=== PATIENT | female | born 1960 | race Caucasian/White ===

== ENCOUNTER → 2023-08-18 12:30 | Outpatient (CLI) | payer MEDICARE, MEDICAID, SELFPAY ==
[2023-08-18 13:07] LABS: Basophils # 0.1 K/mm3 (0-0.2); Basophils % 0.7 % (0.1-2.0); Eosinophils # 0.3 K/mm3 (0.0-0.4); Eosinophils % 1.9 % (0.1-12.0); Hematocrit 51.2 % (37.0-47.0); Hemoglobin 17.2 g/dL (12.2-16.2); Lymphocytes % 13.1 % (10-50); Mean Corpuscular HGB Conc 33.6 g/dL (31.8-35.4); Mean Corpuscular Hemoglobin 29.6 pg (27.0-31.2); Mean Platelet Volume 7.9 fl (7.4-10.4); Monocytes # 0.6 K/mm3 (0.1-1.0); Monocytes % 4.1 % (1.7-9.3); Neutrophils # 12.2 K/mm3 (1.8-7.8); Neutrophils % 80.1 % (37.0-80.0); Platelet Count 307 K/mm3 (142-424); Red Blood Count 5.82 M/mm3 (4.20-5.40); Red Cell Distribution Width 14.1 % (11.5-17.5); White Blood Count 15.2 K/mm3 (4.8-10.8)
[2023-08-18 13:08] LABS: MANUAL DIFFERENTIAL MANUAL DIFFERENTIAL (MANUAL DIFF)
[2023-08-18 13:19] LABS: Eosinophils % 3 % (0-3); Lymphocytes % 12 % (10-50); Monocytes % 5 % (2-9); Neutrophils % 80 % (42-76); Platelet Estimate Normal; RBC Morphology Normal; Total Cells Counted 100
[2023-08-18 13:31] LABS: Alanine Aminotransferase 16 U/L (12-78); Albumin Level 4.1 g/dl (3.5-5.0); Alkaline Phosphatase 121 U/L (38-126); Anion Gap 13.1 mEq/L (5-15); Aspartate Amino Transferase 26 U/L (14-36); Bilirubin,Direct 0.2 mg/dl (0.0-0.4); Bilirubin,Total 0.2 mg/dl (0.2-1.3); Blood Urea Nitrogen 8 mg/dl (7-17); Calcium 9.4 mg/dl (8.4-10.2); Carbon Dioxide 26 mmol/L (22.0-30.0); Chloride 104 mmol/L (98-107); Cholesterol 205 mg/dl (140-200); Estimated Glomerular Filt Rate 73 ml/min (>60); GFR (African American) 88 ML/MIN (>60); Glucose 125 mg/dl (74-100); HDL Cholesterol 41 mg/dl (40-60); Magnesium 1.9 mg/dl (1.6-2.3); Potassium 4.1 mmoL/L (3.5-5.1); Sodium 139 mmol/L (136-145); Total Protein,Serum 6.4 g/dl (6.3-8.2); Triglycerides 386 mg/dl (30-150); VLDL Cholesterol 77 mg/dL (0-40)
[2023-08-18 13:42] LABS: Direct LDL Cholesterol 121.08 mg/dL (100-129)
[2023-08-18 14:00] LABS: Thyroid Stimulating Hormone 0.41 uIU/mL (0.465-4.68)
== END ==
LOC: LAB 12:31
PROVIDERS: PCP Family Medicine; Visit Provider Internal Medicine
DX: J43.9 Emphysema, unspecified (principal); R00.0 Tachycardia, unspecified; R07.9 Chest pain, unspecified; R53.83 Other fatigue
CPT/HCPCS: 36415; 80048; 80061; 80076; 83735; 84439; 84443; 85007; 85025; 93225

== ENCOUNTER → 2023-08-26 11:10 | Outpatient (CLI) | payer MEDICARE, MEDICAID, SELFPAY ==
--- NOTE | 2023-08-26 11:10 | NM_ITS ---
APPROVED REPORT Exam: Nuclear Stress Test Indication: HTN, HYPERLIPIDEMIA, FORMER SMOKER, TACHYCARDIA, C.P., PALPITATIONS, FATIGUE Patient Location: Outpatient Stress Tech: Brenda Du ME Tech:STEVEN Darnell RT (R)(N)(M) Ht: 5 ft 1 in Wt: 115 lbs Bra Size: B HR: 74 bpm BP: 130/86 mmHg BSA: 1.49 m2 TID: 0.96 BMI: 21.7 History: HTN, HYPERLIPIDEMIA, FORMER SMOKER, TACHYCARDIA, C.P., PALPITATIONS, FATIGUE Procedure: Patient received 0.4 mg of intravenous Lexiscan, resting heart rate 74 bpm, resting blood pressure 130/86 mmHg, with Lexiscan maximum heart rate achieved was 102 bpm which is % of the maximum predicted heart rate and blood pressure was 156/89 mmHg. With Lexiscan, patient denied any complaint of chest pain. Cardiac Stress and Resting SPECT Images: Cardiac Stress and Resting SPECT images were obtained using technetium 99m Myoview 31.8 mCi stress and 10.08 mCi at rest. Resting and stress imaging in supine and prone positions demonstrate a medium sized, mild, fixed perfusion defect of the inferior and inferoseptal LV wall. Findings may be suggestive of diaphragmatic attenuation, but true perfusion defect cannot be entirely ruled out. Gated imaging demonstrates normal global and regional LV systolic function. LVEF is calculated at 67%. Conclusion: Medium sized, mild, fixed perfusion defect of the inferior and inferoseptal LV wall. Findings may be suggestive of diaphragmatic attenuation, but true perfusion defect cannot be entirely ruled out. Gated imaging demonstrates normal global and regional LV systolic function. LVEF is calculated at 67%. Electronically signed by : Vanessa Li MD 08/27/2023 12:42:33
--- NOTE | 2023-08-26 13:10 | CA_ITS ---
APPROVED REPORT EXAM: Comprehensive 2D, Doppler, and color-flow Echocardiogram S[employer] Plant Supervisor: Maricarmen Melissa RVT Ht: 5 ft 0 in Wt: 115lbs BSA: 1.48 BP: 141/88 mmHg Indications: CP,FATIGUE,TACHYCARDIA,EX SMOKER,EDEMA 2D Dimensions LVOT 1.76 cm (M/F) 1.5-2.5 LA Volume 30.00 mL LA Volume Index 20.27 mL/m2 (M/F) 16-34 M-Mode Dimensions RVDd 3.37 cm (0.9-2.6) LA Diam 3.63 cm (1.9-4.0) LVDd 4.06 cm (3.5-5.7) Ao Diam 2.79 cm (2.0-3.7) LVDs 2.50 cm (3.5-5.7) IVSd 0.75 cm (0.6-1.1) PWd 0.37 cm (0.6-1.1) EF (Teich) 69.20% FS 38.40% EDV (Teich) 72.50 mL TAPSE 1.75 (<1.7) ESV (Teich) 22.30 mL LV Diastology E Decel Time 150.00 (160-240 msec) E/A Ratio 1.3 MED E' 9.50 (< 7 cm/sec) E'/MED E' Ratio 8.32 (>14) LAT E' 10.20 (<10 cm/sec) E/LAT E' Ratio 7.75 (>14) Aortic Valve LVOT Max 124.00 (70-110 cm/s) LVOT VTI 26.36 cm AoV Peak Jake. 140.00 (50-130 cm/s) AO Peak GR. 7.80 mmHg AO Mean GR. 4.10 (<5 mmHg) AO VTI 30.34 (18-25 cm) HEATH (VTI) 2.11 (2.5-4.5 cm2) Mitral Valve MV E Max Jake. 79.00 (40-130 cm/s) MV A Velocity 63.00 (40-130 cm/s) E/A Ratio 1.25 MV Decel. Time 150.00 (160-240 ms) MV PHT 44.00 ms Pulmonary Valve PV Peak Velocity 53.00 (50-150 cm/s) Tricuspid Valve TR P. Velocity 166.00 cm/s RAP Estimate 10.00 mmHg RVSP 21.00 mmHg Left Ventricle The left ventricle is normal size. The left ventricular systolic function is normal. The left ventricular ejection fraction is within the normal range. There is increased LV wall thickness. There is normal LV segmental wall motion. The left ventricular diastolic function is normal. LVEF is 55%. Right Ventricle The right ventricle is mildly dilated. The right ventricular systolic function is normal. Atria The left atrium size is normal. The right atrium size is normal. There is no Doppler evidence of interatrial shunt. Aortic Valve The aortic valve opens well. There is no aortic valvular stenosis. Mild aortic regurgitation. Mitral Valve The mitral valve is normal in structure. No evidence of mitral valve stenosis. Trace mitral regurgitation. Tricuspid Valve The tricuspid valve leaflets are thin and pliable. Mild tricuspid regurgitation. RVSP is normal. Pulmonic Valve The pulmonary valve is normal in structure. Trace pulmonic regurgitation. Great Vessels The aortic root is normal in size. The ascending aorta is normal in size. IVC is normal in size and collapses >50% with inspiration. Pericardium There is no pericardial effusion. Other Information Study Quality: Fair Conclusion Normal biventricular systolic function. Mild RV dilation. Mild AI, mild TR. Electronically signed by : Vanessa Li MD 09/05/2023 18:16:53
--- NOTE | 2023-08-26 13:36 | CA_ITS ---
APPROVED REPORT Exam: Pharmacologic Technologist: Brenda Du Ht: 5 ft 0 in Wt: 115 lbs BSA: 1.48 m2 HR: 74 bpm BP: 130/86 mmHg Rhythm: NSR Indications: Chest pain, Tachycardia, Fatigue Medical History Medications: Metoprolol,,,,, Gabapentin,,,,, Vitamin D3,,,,, SyMBICORT,,,,, CloPIdogrel,,,,, Ezetimbe,,,,, CetIRIZINE,,,,, Olmesartan,,,,, FluTICASONE Propionate,,,,, Stress Test Details Test: LEXISCAN HR Resting HR: 68 bpm Max Heart Rate (APMHR): 159 bpm Max HR Achieved: 104 bpm Target HR (85% APMHR): 135 bpm % of APMHR: 65 Recovery HR: 75 bpm BP Resting BP: 130.0/86.0 mmHg Max BP: 156.0/89.0 mmHg Recovery BP: 146.0/88.0 mmHg ECG Resting ECG: Sinus rhythm, right bundle branch block Stress ECG: No significant ST changes Arrhythmia: None Clinical Exercise duration: 04:03 min Highest Stage Achieved: Exercise capacity: 1.0 METs Stress ECG Conclusion Symptoms: Dyspnea Arrhythmias/Ectopy: None ST-T Changes: No significant ST changes Conclusion: Unremarkable Lexiscan stress test. Myoview images reported separately. Test Summary REST . . . . . . . Resting REST 05:16 . . 68 . 130/ 86 . . Stage 1 . . . . . . . Myoview Injected Stage 1 01:00 . . 96 . . . . Stage 2 01:00 . . 102 . 156/ 89 . . Stage 3 01:00 . . 82 . 146/ 87 . . Stage 4 01:00 . . 81 . 139/ 80 . . Stage 4 01:03 . . 82 . 139/ 80 . Stop exercise at 04:03 RECOVERY 01:00 . . 90 . 139/ 90 . . RECOVERY 02:00 . . 73 . 139/ 90 . . RECOVERY 03:00 . . 85 . 140/ 86 . . RECOVERY 04:00 . . 72 . 140/ 86 . . RECOVERY 05:00 . . 90 . 140/ 86 . . RECOVERY 05:55 . . 78 . 146/ 88 . . Electronically signed by : Vanessa Li MD 08/27/2023 12:40:58
== END ==
PROVIDERS: PCP Family Medicine; Visit Provider Internal Medicine
DX: J43.9 Emphysema, unspecified (principal); R00.0 Tachycardia, unspecified; R07.9 Chest pain, unspecified; R53.83 Other fatigue; R94.31 Abnormal electrocardiogram [ECG] [EKG]
CPT/HCPCS: 78452; 93017; 93018; 93306; A9502; J2785

== ENCOUNTER 2023-10-10 09:10 | Outpatient (CLI) | payer MEDICARE, MEDICAID, SELFPAY ==
[2023-10-10] VITALS (10 sets, daily range): BP systolic 107–156; BP diastolic 62–92; PULSE 70–93; RESP 16–18; TEMP 36.6–37.1; O2SAT 94–100; BMI 22.0
--- NOTE | 2023-10-10 09:11 | CT_ITS ---
APPROVED REPORT Process Specialist: CLINICAL INDICATION Chest Pain TECHNIQUE Image Acquisition: A 128 slice MDCT scanner ([employer] View) was used for data acquisition. A noncontrast coronary calcium scan was performed. A CT attenuation threshold of 130 Hounsfield units (HU) was used for the detection of calcium in contiguous voxels of 1 sq mm in area to be counted as individual lesions. Bolus tracking in the ascending aorta with a threshold of 180 HU was performed. Immediately afterwards, ECG synchronized cardiac CT was then performed from the cardiac base to apex using retrospective gating with ECG tube current modulation. A total of 85 mL of Isovue 370 mg/mL contrast medium was administered at 5 mL/sec followed by a saline flush using a biphasic injection protocol. A tube voltage of 120 KVp was used. The patient received the following medications prior to the cardiac CT. 100 mg of oral metoprolol 15 mg of intravenous metoprolol 0.8 mg of sublingual nitroglycerin The average heart rate at the time of acquisition was 59 bpm and regular. Image Reconstruction Transaxial images were reconstructed at 0.67 mm slide thickness. Data was reviewed interactively on an advanced workstation capable of 2 and 3-dimensional displays in all conventional reconstruction formats, including multiplanar reformations, maximum intensity projections, curved multiplanar reformations, and volume rendered reconstructions. When applicable, selected routine images describing the relevant coronary anatomy and pathology were saved and sent to PACS. Complications None Technical Quality Overall image quality was good. Coronary artery opacification was adequate. Total DLP (Dose-Length Product) is 1460.6 mGy-cm. The reported value represents the total of one or more individual components during the CT acquisition of this date and at this time, and as such, the same value may appear in more than one CT report depending on the interpreting/reporting physicians. COMPARISON None FINDINGS CT Coronary Calcium Scoring LMA (Left Main Artery) = 0 LAD (Left Anterior Descending) = 0 LCX (Left Coronary Circumflex) = 0 RCA (Right Coronary Artery) = 0 Total Calcium Score = 0 using the AJ-130 method. The interpretation of the calcium heart score is based on the following continuum*: 0 = no calcified plaque detected (risk of coronary artery disease is very low ??? less than 5%) 1-10 = calcium detected in extremely minimal levels (risk of coronary diseases is still low ??? less than 10%) 11-100 = mild levels of plaque detected with certainty (mild or minimal narrowing of heart arteries is likely) 101-400 = definite,at least moderate levels of plaque detected (relatively high risk of a heart attack within 3-5 years) >401-999 = extensive levels of plaque detected (high risk of heart attack, high levels of vascular disease are present, high likelihood of at least one significant coronary narrowing) *The calcium heart score quantifies the burden of coronary calcification/plaque in the coronary arteries. The calcium heart score is not able to evaluate the presence or burden of non-calcified (i.e. soft) plaque. There is identifiable mild calcification in the ascending and descending thoracic aorta, but not the aortic valve, mitral annulus or mitral valve, pericardium, or myocardium. Coronary CT Angiography The coronary arterial system is right dominant. Quantitative Stenosis Grading: Left Main (LM): The left main originates normally from the left sinus of Valsalva. 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 The LM is patent with no evidence of atherosclerosis. Left Anterior Descending (LAD) and Diagonal Branches: The LAD gives off 4 diagonal branches. The LAD and its branches are patent with no evidence of atherosclerosis. There is no evidence of LAD bridge. 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 The LCX gives off 2 Obtuse Marginal (OM) branch(es). The anomalous LCX and its branches are patent with no evidence of atherosclerosis. Right Coronary Artery (RCA): The RCA originates normally from the right sinus of Valsalva. The RCA gives off a posterior descending artery (PDA) and posterolateral (PL) branches. The RCA and its branches are patent with no evidence of atherosclerosis. Non-Coronary Cardiac Findings: Analysis of the left ventricular (LV) structure and function was performed after 3-D reconstruction of the LV from axial images, with user-corrected automatic contouring for assessment of LV volumes and user-defined reconstruction from oblique planes for measurement of 3-D cardiac structure and function. LVEDV: 108 mL LVESV: 47 mL SV: 61 mL LVEF: 57% -The left ventricle is normal in size with normal left ventricular systolic function. -There is no left atrial appendage filling defect. Two right pulmonary veins and two left pulmonary veins drain normally into the left atrium. -No pericardial thickening or calcification. -Central and branch pulmonary arteries in the [id number] are unremarkable. -Thoracic aorta within the visualized thoracic aortic-branches in the [id number] is unremarkable. Extracardiac Structures -Small hiatal hernia is present. IMPRESSION -No coronary calcification with an Agatston score = 0 using the AJ-130 method. -No evidence of significant flow-limiting atherosclerosis of the coronary arteries. 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 The LCX gives off 2 Obtuse Marginal (OM) branch(es). The anomalous LCX and its branches are patent with no evidence of atherosclerosis. -CAD-RADS 0. Management recommendations per ACC/AHA guidelines*, as clinically appropriate. -Small hiatal hernia is present. *Recommendations: CAD RADS 0: Reassurance. Consider non-atherosclerotic causes of chest pain. CAD RADS 1: Consider non-atherosclerotic causes of chest pain. Consider preventive therapy and risk factor modification. CAD RADS 2: Consider non-atherosclerotic causes of chest pain. Consider preventive therapy and risk factor modification, particularly for patients with nonobstructive plaque in multiple segments. CAD RADS 3: Consider further functional testing. Consider symptom-guided anti-ischemic and preventive pharmacotherapy as well as risk factor modification per published guideline statements. CAD RADS 4A: Consider further functional testing or invasive coronary angiography with revascularization per published guideline statements. Consider symptom-guided anti-ischemic and preventive pharmacotherapy as well as risk factor modification per published guideline statements. CAD RADS 4B: Invasive coronary angiography recommended with revascularization per published guideline statements. Consider symptom-guided anti-ischemic and preventive pharmacotherapy as well as risk factor modification per published guideline statements. CAD RADS 5: Consider invasive angiography and/or viability assessment with revascularization per published guideline statements. Consider symptom-guided anti-ischemic and preventive pharmacotherapy as well as risk factor modification per published guideline statements. CRITICAL RESULT None COMMUNICATION Per this written report The coronary and cardiac findings of this CCTA were reviewed, reported, and signed by Virgilio Li MD (Glue [employer]er) Conclusion Electronically signed by : Vanessa Li MD 10/13/2023 18:00:22
[2023-10-10] MEDS: METOPROLOL TARTRATE 50MG TABLET 100 MG PO (09:46)
[2023-10-10 09:48] LABS: Chloride 107 mmol/L (98-107); Potassium 3.9 mmoL/L (3.5-5.1); Sodium 141 mmol/L (136-145)
[2023-10-10 09:51] LABS: Anion Gap 11.9 mEq/L (5-15); Blood Urea Nitrogen 17 mg/dl (7-17); Calcium 8.9 mg/dl (8.4-10.2); Carbon Dioxide 26 mmol/L (22.0-30.0); Creatinine Clearance Estimated 47 mL/min (50-200); Estimated Glomerular Filt Rate 73 ml/min (>60); GFR (African American) 88 ML/MIN (>60); Glucose 105 mg/dl (74-100)
[2023-10-10] MEDS: METOPROLOL TARTRATE 5MG/5ML VIAL 5 MG IV ×3 (10:40→11:20)
[2023-10-10] MEDS: NITROGLYCERIN 0.4MG SL TABLET 0.800000000000000044 MG SL (11:07)
[2023-10-10] MEDS: 0.9 % SODIUM CHLORIDE 50 ML VIAL IV (11:30)
[2023-10-10] MEDS: IOPAMIDOL-370 (76%);100ML BOTTLE 85 ML IV (11:30)
--- NOTE | 2023-10-10 11:34 | PC.NURSE ---
1107-Arrived to CT Room, nitro 0.8mg SL given 1111-post nitro VSS 1120-Metoprolol 5mg IV given. HR 78, PB 116/80 1125-CTA complete 1130-Pt to post op for recovery, vss, report given to Gato Vazquez RN
== END 2023-10-10 12:16 | disposition home or self-care (01) ==
PROVIDERS: PCP Family Medicine; Visit Provider Internal Medicine
DX: E78.5 Hyperlipidemia, unspecified (principal); I10 Essential (primary) hypertension; I34.0 Nonrheumatic mitral (valve) insufficiency; I35.1 Nonrheumatic aortic (valve) insufficiency; R07.9 Chest pain, unspecified; I20.89 Other forms of angina pectoris; R94.31 Abnormal electrocardiogram [ECG] [EKG]
CPT/HCPCS: 75571; 75574; 80048; Q9967